=== PATIENT | male | born 1940 | race Caucasian/White ===

== ENCOUNTER 2018-03-08 22:20 | Emergency (ER) | payer OTHER, BC ==
[~2018-03-08] VITALS: Ht 154.9 cm; Wt 66.7 kg
[2018-03-08 22:26] VITALS: BP_SYST 105
[2018-03-09 01:34] VITALS: BP_SYST 112
== END 2018-03-09 01:34 | disposition home or self-care (01) ==
LOC: SED 22:20
DX: S00.03XA Contusion of scalp, initial encounter (principal); S43.402A Unspecified sprain of left shoulder joint, initial encounter; F03.90 Unspecified dementia, unspecified severity, without behavioral disturbance, psychotic disturbance, mood disturbance, and anxiety; Z88.1 Allergy status to other antibiotic agents; Z88.8 Allergy status to other drugs, medicaments and biological substances; W07.XXXA Fall from chair, initial encounter; Y93.89 Activity, other specified; Y92.89 Other specified places as the place of occurrence of the external cause; Y99.8 Other external cause status
CPT/HCPCS: 70450-TC; 73030; 99284

== ENCOUNTER 2018-05-12 10:59 | Inpatient (IN) | payer OTHER, BC ==
[~2018-05-12] VITALS: Ht 157.5 cm; Wt 54.4 kg
[2018-05-12 10:59] VITALS: BP_SYST 132
[2018-05-12 12:12] LABS: BASOPHILS % (AUTO) 0.3 % (0.0-2.0); EOSINOPHILS # (AUTO) 0.1 K/uL (0.0-0.4); EOSINOPHILS % (AUTO) 1.1 % (0.0-4.0); HEMATOCRIT 44.1 % (36-54); HEMOGLOBIN 15.1 g/dL (14.0-18.0); LYMPHOCYTES % (AUTO) 11.5 % (20.5-51.5); MEAN CORPUSCULAR HEMOGLOBIN 32 pg (27-31); MEAN CORPUSCULAR HGB CONC 34 % (32-36); MEAN CORPUSCULAR VOLUME 93 fL (79.0-98.0); MONOCYTES # (AUTO) 0.8 K/uL (0.0-1.0); NEUTROPHILS % (AUTO) 78.1 % (40.0-70.0); PLATELET COUNT (AUTO) 339 K/uL (130-430); RED BLOOD CELL COUNT(AUTO) 4.75 MIL/uL (4.2-6.2); RED CELL DISTRIBUTION WIDTH 13.1 % (9.0-15.0); WHITE BLOOD COUNT (AUTO) 8.9 K/uL (4.8-10.8)
[2018-05-12 12:13] LABS: ANION GAP 4 (5-15); CALCIUM 9.1 mg/dL (8.4-11.0); CHLORIDE 109 mmol/L (98-107); CREATININE 0.87 mg/dL (0.55-1.30); GLUCOSE 97 mg/dL (70-99); POTASSIUM 4.1 mmol/L (3.5-5.1); SODIUM SERUM 142 mmol/L (136-145); UREA NITROGEN, BLOOD 19 mg/dL (8-21)
[2018-05-12 12:19] LABS: ALANINE AMINOTRANSFERASE 52 U/L (12-78); ALBUMIN 3.5 g/dL (3.4-4.8); ASPARTATE AMINOTRANSFERASE 33 U/L (10-37); TOTAL BILIRUBIN 0.9 mg/dL (0.0-1.0)
[2018-05-12] MEDS ORDERED: VITD400 PO (14:07)
[2018-05-12] MEDS ORDERED: ACET325T53 PO (14:07)
[2018-05-12] MEDS ORDERED: XALEYE OP (14:07)
[2018-05-12] MEDS ORDERED: OXYB5TAB11 PO (14:07)
[2018-05-12] MEDS ORDERED: DIVA125C PO (14:07)
[2018-05-12] MEDS ORDERED: ARIP5TAB10 PO (14:07)
[2018-05-12] MEDS ORDERED: MELA3TAB PO (14:07)
[2018-05-12] MEDS ORDERED: ALEN10TA6 PO (14:07)
[2018-05-12] MEDS ORDERED: SENN8.6T19 PO (14:07)
[2018-05-12] MEDS ORDERED: OMEG10006 PO (14:07)
[2018-05-12] MEDS ORDERED: ALPR0.25 PO (14:07)
[2018-05-12] MEDS ORDERED: SYN50 PO (14:07)
[2018-05-12] MEDS ORDERED: AMLO5TAB4 PO (14:07)
[2018-05-12] MEDS ORDERED: TRAZ-123 PO (14:07)
[2018-05-12] MEDS ORDERED: ASPI-1153 PO (14:07)
[2018-05-12 15:00] VITALS: BP_SYST 132
[2018-05-12] MEDS ORDERED: traZODone HCL 50 MG TABLET (DESYREL) PO PRN (15:15)
[2018-05-12] MEDS ORDERED: ZOLPIDEM TARTRATE 5 MG TABLET PO PRN (15:15)
[2018-05-12] MEDS ORDERED: POTASSIUM CHLORIDE 20 MEQ TAB.PRT.SR PO PRN (15:15)
[2018-05-12] MEDS ORDERED: DOCUSATE SODIUM 100 MG CAPSULE PO PRN (15:15)
[2018-05-12] MEDS ORDERED: MORPHINE 2 MG/ML INJ. SYRINGE IVP PRN ×2 (15:15)
[2018-05-12] MEDS ORDERED: MAGNESIUM SULFATE 50 ML IV PRN (15:15)
[2018-05-12] MEDS ORDERED: MUPIROCIN 2% TOPICAL OINTMENT 22 GM NS PRN (15:15)
[2018-05-12] MEDS ORDERED: ACETAMINOPHEN 325 MG TABLET PO PRN (15:15)
[2018-05-12] MEDS ORDERED: ONDANSETRON HCL 4 MG/2 ML VIAL IVP PRN (15:15)
[2018-05-12] MEDS ORDERED: LORazepam 2 MG/ML VIAL IVP PRN (15:15)
[2018-05-12 15:22] VITALS: BP_SYST 150
[2018-05-12] MEDS: NACL 0.9% 1,000 ML IV SCH (17:28)
[2018-05-12 17:56] LABS: BILIRUBIN,URINE NEGATIVE (NEGATIVE); BLOOD, URINE 2+ (NEGATIVE); CLARITY/URINE CLEAR (CLEAR); COLOR,URINE YELLOW (YELLOW); GLUCOSE,URINE NEGATIVE (NEGATIVE); KETONES,URINE NEGATIVE (NEGATIVE); LEUKOCYTE ESTERASE ,URINE 1+ (NEGATIVE); NITRITE, URINE NEGATIVE (NEGATIVE); PH,URINE 7.5 (5.0-8.0); PROTEIN URINE 1+ (NEGATIVE)
[2018-05-12 18:10] LABS: BACTERIA,URINE RARE /HPF (None Seen); RBC,URINE 0-3 /HPF (0-3); WBC,URINE 20-50 /HPF (0-3)
[2018-05-12 20:00] VITALS: BP_SYST 103
[2018-05-12] MEDS: HEPARIN SODIUM,PORCINE 5000 UNITS/ML VIAL SUBCUT SCH (20:29)
[2018-05-12] MEDS: LATANOPROST 2.5 ML DROPS (XALATAN) OP SCH (20:46)
[2018-05-12] MEDS ORDERED: ARIPiprazole 5 MG TAB PO SCH (21:00)
[2018-05-13 00:43] VITALS: BP_SYST 140
[2018-05-13] MEDS: LEVOTHYROXINE SODIUM 0.05 MG TABLET PO SCH (06:01)
[2018-05-13] MEDS: NACL 0.9% 1,000 ML IV SCH ×2 (06:35→23:35)
[2018-05-13 06:56] LABS: ANION GAP 6 (5-15); CALCIUM 8.5 mg/dL (8.4-11.0); CHLORIDE 110 mmol/L (98-107); CREATININE 0.91 mg/dL (0.55-1.30); GLUCOSE 100 mg/dL (70-99); POTASSIUM 3.8 mmol/L (3.5-5.1); SODIUM SERUM 143 mmol/L (136-145); UREA NITROGEN, BLOOD 16 mg/dL (8-21)
[2018-05-13 07:13] LABS: BASOPHILS % (AUTO) 0.4 % (0.0-2.0); EOSINOPHILS # (AUTO) 0.1 K/uL (0.0-0.4); HEMOGLOBIN 12.6 g/dL (14.0-18.0); LYMPHOCYTES # (AUTO) 1.1 K/uL (1.0-5.5); LYMPHOCYTES % (AUTO) 14.3 % (20.5-51.5); MEAN CORPUSCULAR HEMOGLOBIN 32 pg (27-31); MEAN CORPUSCULAR HGB CONC 34 % (32-36); MEAN CORPUSCULAR VOLUME 93 fL (79.0-98.0); MONOCYTES # (AUTO) 0.8 K/uL (0.0-1.0); NEUTROPHILS # (AUTO) 5.8 K/uL (1.8-7.7); NEUTROPHILS % (AUTO) 74.3 % (40.0-70.0); PLATELET COUNT (AUTO) 283 K/uL (130-430); RED BLOOD CELL COUNT(AUTO) 3.98 MIL/uL (4.2-6.2); RED CELL DISTRIBUTION WIDTH 12.9 % (9.0-15.0); WHITE BLOOD COUNT (AUTO) 7.9 K/uL (4.8-10.8)
[2018-05-13] MEDS: OXYBUTYNIN CHLORIDE 5 MG TABLET PO SCH (08:12)
[2018-05-13] MEDS: ASPIRIN 81 MG TABLET(ECOTRIN) PO SCH (08:12)
[2018-05-13] MEDS: amLODIPine BESYLATE 5 MG TABLET PO SCH (08:13)
[2018-05-13] MEDS: HEPARIN SODIUM,PORCINE 5000 UNITS/ML VIAL SUBCUT SCH ×2 (08:15→20:15)
[2018-05-13 08:30] VITALS: BP_SYST 142
[2018-05-13] MEDS ORDERED: DIVALPROEX SODIUM 125 MG CAP.(DEPAKOTE SPRINKLE) PO SCH (09:00)
[2018-05-13] MEDS: cefTRIAXone 1 GM in D5W 50 ML IV SCH (11:23)
[2018-05-13 12:24] VITALS: BP_SYST 126
[2018-05-13 16:54] VITALS: BP_SYST 137
[2018-05-13 20:00] VITALS: BP_SYST 119
[2018-05-13] MEDS: LATANOPROST 2.5 ML DROPS (XALATAN) OP SCH (20:24)
[2018-05-13 23:31] VITALS: BP_SYST 133
[2018-05-14] MEDS: LEVOTHYROXINE SODIUM 0.05 MG TABLET PO SCH (06:00)
[2018-05-14 06:43] LABS: ANION GAP 7 (5-15); CALCIUM 8.1 mg/dL (8.4-11.0); CHLORIDE 110 mmol/L (98-107); CREATININE 0.74 mg/dL (0.55-1.30); GLUCOSE 96 mg/dL (70-99); POTASSIUM 3.7 mmol/L (3.5-5.1); SODIUM SERUM 142 mmol/L (136-145); UREA NITROGEN, BLOOD 14 mg/dL (8-21)
[2018-05-14 07:17] LABS: BASOPHILS % (AUTO) 0.3 % (0.0-2.0); EOSINOPHILS # (AUTO) 0.1 K/uL (0.0-0.4); EOSINOPHILS % (AUTO) 1.5 % (0.0-4.0); HEMATOCRIT 34.7 % (36-54); HEMOGLOBIN 12.1 g/dL (14.0-18.0); LYMPHOCYTES # (AUTO) 1.3 K/uL (1.0-5.5); LYMPHOCYTES % (AUTO) 15.4 % (20.5-51.5); MEAN CORPUSCULAR HEMOGLOBIN 32 pg (27-31); MEAN CORPUSCULAR HGB CONC 35 % (32-36); MEAN CORPUSCULAR VOLUME 93 fL (79.0-98.0); MONOCYTES # (AUTO) 0.7 K/uL (0.0-1.0); MONOCYTES % (AUTO) 7.9 % (1.7-9.3); NEUTROPHILS # (AUTO) 6.2 K/uL (1.8-7.7); NEUTROPHILS % (AUTO) 74.9 % (40.0-70.0); PLATELET COUNT (AUTO) 264 K/uL (130-430); RED BLOOD CELL COUNT(AUTO) 3.73 MIL/uL (4.2-6.2); RED CELL DISTRIBUTION WIDTH 12.6 % (9.0-15.0); WHITE BLOOD COUNT (AUTO) 8.3 K/uL (4.8-10.8)
[2018-05-14 08:00] VITALS: BP_SYST 132
[2018-05-14] MEDS: ASPIRIN 81 MG TABLET(ECOTRIN) PO SCH (09:00)
[2018-05-14] MEDS: amLODIPine BESYLATE 5 MG TABLET PO SCH (09:22)
[2018-05-14] MEDS: cefTRIAXone 1 GM in D5W 50 ML IV SCH (09:22)
[2018-05-14] MEDS: OXYBUTYNIN CHLORIDE 5 MG TABLET PO SCH (09:22)
[2018-05-14] MEDS: HEPARIN SODIUM,PORCINE 5000 UNITS/ML VIAL SUBCUT SCH ×2 (09:24→20:40)
[2018-05-14 13:09] VITALS: BP_SYST 158
[2018-05-14 16:00] VITALS: BP_SYST 144
[2018-05-14] MEDS: NACL 0.9% 1,000 ML IV SCH (18:21)
[2018-05-14 19:30] VITALS: BP_SYST 130
[2018-05-14] MEDS: LATANOPROST 2.5 ML DROPS (XALATAN) OP SCH (20:58)
[2018-05-14] MEDS ORDERED: traZODone HCL 50 MG TABLET (DESYREL) PO SCH (21:00)
[2018-05-14 23:45] VITALS: BP_SYST 100
[2018-05-15] MEDS: LEVOTHYROXINE SODIUM 0.05 MG TABLET PO SCH (06:29)
[2018-05-15 07:05] LABS: BASOPHILS % (AUTO) 0.2 % (0.0-2.0); EOSINOPHILS # (AUTO) 0.1 K/uL (0.0-0.4); EOSINOPHILS % (AUTO) 1.7 % (0.0-4.0); LYMPHOCYTES # (AUTO) 1.2 K/uL (1.0-5.5); LYMPHOCYTES % (AUTO) 16.2 % (20.5-51.5); MEAN CORPUSCULAR HEMOGLOBIN 32 pg (27-31); MEAN CORPUSCULAR HGB CONC 34 % (32-36); MEAN CORPUSCULAR VOLUME 92 fL (79.0-98.0); MONOCYTES # (AUTO) 0.8 K/uL (0.0-1.0); MONOCYTES % (AUTO) 10.2 % (1.7-9.3); NEUTROPHILS # (AUTO) 5.4 K/uL (1.8-7.7); NEUTROPHILS % (AUTO) 71.7 % (40.0-70.0); PLATELET COUNT (AUTO) 273 K/uL (130-430); RED BLOOD CELL COUNT(AUTO) 3.81 MIL/uL (4.2-6.2); RED CELL DISTRIBUTION WIDTH 12.8 % (9.0-15.0); WHITE BLOOD COUNT (AUTO) 7.5 K/uL (4.8-10.8)
[2018-05-15 07:22] LABS: ANION GAP 6 (5-15); CALCIUM 7.9 mg/dL (8.4-11.0); CHLORIDE 110 mmol/L (98-107); CREATININE 0.72 mg/dL (0.55-1.30); GLUCOSE 95 mg/dL (70-99); POTASSIUM 3.5 mmol/L (3.5-5.1); SODIUM SERUM 141 mmol/L (136-145); UREA NITROGEN, BLOOD 10 mg/dL (8-21)
[2018-05-15 08:00] VITALS: BP_SYST 111
[2018-05-15] MEDS: cefTRIAXone 1 GM in D5W 50 ML IV SCH (08:49)
[2018-05-15] MEDS: HEPARIN SODIUM,PORCINE 5000 UNITS/ML VIAL SUBCUT SCH (08:54)
[2018-05-15] MEDS: ASPIRIN 81 MG TABLET(ECOTRIN) PO SCH (08:55)
[2018-05-15] MEDS: OXYBUTYNIN CHLORIDE 5 MG TABLET PO SCH (08:55)
[2018-05-15] MEDS: amLODIPine BESYLATE 5 MG TABLET PO SCH (08:55)
[2018-05-15] MEDS: NACL 0.9% 1,000 ML IV SCH (10:43)
[2018-05-15 12:30] VITALS: BP_SYST 134
[2018-05-15 16:38] VITALS: BP_SYST 153
[2018-05-15 18:55] VITALS: BP_SYST 120
[2018-05-15 19:15] VITALS: BP_SYST 140
== END 2018-05-15 19:35 | DRG 552 ==
LOC: SED 10:59 → SMU 14:06
PROVIDERS: ADMIT General Practice; ATTEND General Practice
DX: M47.816 Spondylosis without myelopathy or radiculopathy, lumbar region (principal); N39.0 Urinary tract infection, site not specified; M43.16 Spondylolisthesis, lumbar region; R26.81 Unsteadiness on feet; M81.0 Age-related osteoporosis without current pathological fracture; I10 Essential (primary) hypertension; H40.9 Unspecified glaucoma; N32.81 Overactive bladder; E03.9 Hypothyroidism, unspecified; G30.9 Alzheimer's disease, unspecified; E78.5 Hyperlipidemia, unspecified; F02.80 Dementia in other diseases classified elsewhere, unspecified severity, without behavioral disturbance, psychotic disturbance, mood disturbance, and anxiety; F39 Unspecified mood [affective] disorder; M19.90 Unspecified osteoarthritis, unspecified site; R29.6 Repeated falls; W18.39XA Other fall on same level, initial encounter; Y93.89 Activity, other specified; Y92.128 Other place in nursing home as the place of occurrence of the external cause; Y99.8 Other external cause status; Z88.8 Allergy status to other drugs, medicaments and biological substances; Z88.1 Allergy status to other antibiotic agents; Z79.899 Other long term (current) drug therapy
CPT/HCPCS: 36415; 71045; 72100-TC; 72170-TC; 73502; 80048; 80053; 80164-TC; 81000-TC; 82550-TC; 83036; 83735-TC; 84484; 85025; 85610-TC; 85730-TC; 87081; 93005; 97110-GP; 97530-GP; J0696; J1644; J7030; J7060